=== PATIENT | female | born 1990 | race Caucasian/White ===

== ENCOUNTER 2020-02-07 12:33 | Inpatient (IN) | payer BC, OTHER ==
[~2020-02-07] VITALS: Ht 165.1 cm; Wt 77.5 kg
[2020-02-08] MEDS ORDERED: OXYTOCIN 30U/ 0.9% NaCL 500ML 500 ML IV ONE (18:01)
[2020-02-08] MEDS: D5%-LACTATED RINGERS 1,000 ML IV SCH (18:01)
[2020-02-08] MEDS ORDERED: MISOPROSTOL 200 MCG TABLET ONE (18:06)
[2020-02-08] MEDS ORDERED: LIDOCAINE 1%, 20ML ONE (18:06)
[2020-02-08] MEDS ORDERED: OXYTOCIN 30U/ 0.9% NaCL 500ML 500 ML ONE (18:06)
[2020-02-08] MEDS ORDERED: OXYTOCIN 30U/ 0.9% NaCL 500ML 500 ML IV PRN (18:20)
[2020-02-08] MEDS ORDERED: SODIUM CITRATE/CITRIC ACID 30 ML UDC PO PRN (18:30)
[2020-02-08] MEDS ORDERED: TERBUTALINE 1 MG/ML, 1ML IVPush PRN (18:30)
[2020-02-08] MEDS ORDERED: FENTANYL PF 100 MCG/2ML IV PRN (18:30)
[2020-02-08] MEDS ORDERED: TERBUTALINE 1 MG/ML, 1ML SQ PRN (18:30)
[2020-02-08] MEDS ORDERED: SODIUM CHLORIDE FLUSH 10ML SYR IVF PRN (18:30)
[2020-02-08] MEDS ORDERED: FENTANYL PF 100 MCG/2ML IVPush PRN (18:30)
[2020-02-08] MEDS ORDERED: METOCLOPRAMIDE 5 MG/ML, 2ML IVPush PRN (18:30)
[2020-02-08 18:38] LABS: BASOPHILS % (AUTO) 1 % (0-1); EOSINOPHILS # (AUTO) 0.02 x10^3/uL (0-0.4); EOSINOPHILS % (AUTO) 0 % (1-7); LYMPHOCYTES # (AUTO) 1.83 x10^3/uL (1-3.4); LYMPHOCYTES % (AUTO) 26 % (22-44); MD NO; MEAN CORPUSCULAR HEMOGLOBIN 33.7 pg (27.0-34.8); MEAN CORPUSCULAR HGB CONC 34.5 g/dL (32.4-35.8); MEAN CORPUSCULAR VOLUME 97.9 fL (80-100); MEAN PLATELET VOLUME 8.6 fL (7.4-10.4); MONOCYTES # (AUTO) 0.37 x10^3/uL (0.2-0.8); MONOCYTES % (AUTO) 5 % (2-9); NEUTROPHILS # (AUTO) 4.71 x10^3/uL (1.8-6.8); NEUTROPHILS % (AUTO) 67 % (42-75); PLATELET COUNT 304 x10^3/uL (130-400); RED BLOOD COUNT 3.96 x10^6/uL (3.82-5.3); RED CELL DISTRIBUTION WIDTH 12.6 % (9.6-15.2)
[2020-02-08] MEDS ORDERED: MISOPROSTOL 25 MCG TABLET ONE ×2 (18:41→22:46)
[2020-02-08] MEDS: MISOPROSTOL 25 MCG TABLET VG PRN ×2 (18:48→23:00)
[2020-02-08 18:57] VITALS: BP 107/68
[2020-02-09] MEDS ORDERED: FENTANYL PF 100 MCG/2ML ONE ×3 (00:56→18:41)
[2020-02-09] MEDS: D5%-LACTATED RINGERS 1,000 ML IV SCH ×3 (02:01→18:01)
[2020-02-09] MEDS ORDERED: FENTANYL/BUPIV./NS/PF 250 ML EPIDCONT ONE (02:07)
[2020-02-09] MEDS ORDERED: BUPIVACAINE 0.25% ONE ×2 (02:16→02:25)
[2020-02-09] MEDS ORDERED: ONDANSETRON 2MG/ML, 2ML ONE ×4 (03:47→18:41)
[2020-02-09] MEDS: ONDANSETRON 2MG/ML, 2ML IVPush PRN ×3 (03:51→17:44)
[2020-02-09] MEDS: LACTATED RINGERS 1,000 ML IV SCH ×6 (06:00→20:21)
[2020-02-09] MEDS ORDERED: NEWBORN KIT ONE (08:04)
[2020-02-09] MEDS ORDERED: SODIUM CITRATE/CITRIC ACID 30 ML UDC ONE (18:12)
[2020-02-09] MEDS ORDERED: METOCLOPRAMIDE 5 MG/ML, 2ML ONE (18:12)
[2020-02-09] MEDS ORDERED: OXYcodone/APAP 5/325MG TABLET PO PRN ×2 (18:30→23:30)
[2020-02-09] MEDS ORDERED: SODIUM CITRATE/CITRIC ACID 30 ML UDC PO ONE (18:30)
[2020-02-09] MEDS: KETOROLAC 30 MG/1 ML IV SCH (18:30)
[2020-02-09] MEDS ORDERED: ONDANSETRON 2MG/ML, 2ML IV PRN (18:30)
[2020-02-09] MEDS ORDERED: MISOPROSTOL 200 MCG TABLET PR PRN (18:30)
[2020-02-09] MEDS ORDERED: OXYcodone/APAP 10/325MG TABLET PO PRN (18:30)
[2020-02-09] MEDS ORDERED: EPHEDRINE 50 MG/ML, 1ML ONE (18:41)
[2020-02-09] MEDS ORDERED: SUCCINYLCHOLINE 20 MG/ML, 10ML ONE (18:41)
[2020-02-09] MEDS ORDERED: KETOROLAC 30 MG/1 ML ONE (18:41)
[2020-02-09] MEDS ORDERED: OXYTOCIN 10 UNITS/ML, 1ML ONE (18:41)
[2020-02-09] MEDS ORDERED: PHENYLEPHRINE 10 MG/ML ONE (18:41)
[2020-02-09] MEDS ORDERED: CEFAZOLIN 1,000 MG ONE (18:41)
[2020-02-09] MEDS ORDERED: PROPOFOL 10 MG/ML, 20ML ONE (18:41)
[2020-02-09] MEDS ORDERED: DEXAMETHASONE 4 MG/ML, 1ML ONE (18:41)
[2020-02-09] MEDS ORDERED: METOCLOPRAMIDE 5 MG/ML, 2ML IV ONE (19:00)
[2020-02-09] MEDS ORDERED: METOPROLOL 1 MG/ML, 5ML IV PRN (19:00)
[2020-02-09] MEDS ORDERED: AZITHROMYCIN 500 MG in SODIUM CHLORIDE 0.9% 250 ML IV ONE (19:00)
[2020-02-09] MEDS ORDERED: EPHEDRINE 50 MG/ML, 1ML IVPush PRN ×2 (19:00→23:30)
[2020-02-09] MEDS ORDERED: ONDANSETRON 2MG/ML, 2ML IVPush PRN ×2 (19:00→23:30)
[2020-02-09] MEDS ORDERED: ALBUTEROL SULFATE 2.5 MG/3 ML NPPB PRN (19:00)
[2020-02-09] MEDS ORDERED: OXYcodone 5 MG/5 ML ORAL.SOL UDC PO PRN (19:00)
[2020-02-09] MEDS ORDERED: FENTANYL PF 100 MCG/2ML IV PRN (19:00)
[2020-02-09] MEDS ORDERED: hydrALAzine 20 MG/ML, 1ML IV PRN (19:00)
[2020-02-09] MEDS ORDERED: MEPERIDINE/PF 25MG/0.5ML IVPush PRN (19:00)
[2020-02-09] MEDS ORDERED: MIDAZOLAM 1 MG/ML, 2ML IV PRN (19:00)
[2020-02-09] MEDS ORDERED: HYDROmorphone 2 MG/ML, 1ML IVPush PRN (19:00)
[2020-02-09] MEDS ORDERED: HYDROcodone/APAP 7.5-325MG/15ML UDC PO PRN (19:00)
[2020-02-09] MEDS ORDERED: PROMETHAZINE 25 MG/ML, 1ML IV PRN (19:00)
[2020-02-09] MEDS ORDERED: ONDANSETRON 2MG/ML, 2ML IVPush ONE (19:00)
[2020-02-09] MEDS ORDERED: LABETALOL 5MG/ML, 20ML IV PRN (19:00)
[2020-02-09] MEDS ORDERED: LACTATED RINGERS 1,000 ML IVBOLUS ONE (19:00)
[2020-02-09] MEDS ORDERED: morphine SULFATE/PF 0.5 MG/ML, 10ML ONE (19:23)
[2020-02-09] MEDS: OXYTOCIN 30U/ 0.9% NaCL 500ML 500 ML IV SCH (20:22)
[2020-02-09] MEDS ORDERED: OXYcodone 5 MG/5 ML ORAL.SOL UDC ONE (20:35)
[2020-02-09] MEDS: DOCUSATE 100 MG CAPSULE PO SCH (21:00)
[2020-02-09 22:00] VITALS: BP 112/68
[2020-02-09] MEDS ORDERED: KETOROLAC 30 MG/1 ML IVPush PRN (23:30)
[2020-02-09] MEDS ORDERED: DIPHENHYDRAMINE 50 MG/ML, 1ML IVPush PRN (23:30)
[2020-02-09] MEDS ORDERED: NALOXONE 0.4 MG/ML, 1ML IVPush PRN ×2 (23:30)
[2020-02-09] MEDS ORDERED: HYDROmorphone/PF 10 MG/ML, 1ML IVPush PRN (23:30)
[2020-02-09] MEDS ORDERED: DIPHENHYDRAMINE 50 MG/ML, 1ML ONE (23:32)
[2020-02-10] MEDS: KETOROLAC 30 MG/1 ML IV SCH ×3 (00:57→12:58)
[2020-02-10] MEDS: LACTATED RINGERS 1,000 ML IV SCH ×5 (02:23→18:23)
[2020-02-10 02:45] VITALS: BP 113/70
[2020-02-10] MEDS: OXYTOCIN 30U/ 0.9% NaCL 500ML 500 ML IV SCH ×2 (04:23→14:23)
[2020-02-10] MEDS ORDERED: DIPHENHYDRAMINE 50 MG/ML, 1ML IVPush PRN ×2 (05:30)
[2020-02-10 06:09] LABS: MEAN CORPUSCULAR HEMOGLOBIN 33.6 pg (27.0-34.8); MEAN CORPUSCULAR HGB CONC 33.9 g/dL (32.4-35.8); MEAN CORPUSCULAR VOLUME 99.1 fL (80-100); MEAN PLATELET VOLUME 8.6 fL (7.4-10.4); PLATELET COUNT 265 x10^3/uL (130-400); RED BLOOD COUNT 3.18 x10^6/uL (3.82-5.3); RED CELL DISTRIBUTION WIDTH 12.8 % (9.6-15.2)
[2020-02-10 06:50] LABS: BASOPHILS % (AUTO) 0 % (0-1); EOSINOPHILS % (AUTO) 0 % (1-7); LYMPHOCYTES % (AUTO) 6 % (22-44); MD SCAN; MONOCYTES # (AUTO) 0.67 x10^3/uL (0.2-0.8); MONOCYTES % (AUTO) 4 % (2-9); NEUTROPHILS # (AUTO) 14.32 x10^3/uL (1.8-6.8); NEUTROPHILS % (AUTO) 90 % (42-75)
[2020-02-10 07:40] VITALS: BP 106/69
[2020-02-10] MEDS: DOCUSATE 100 MG CAPSULE PO SCH ×2 (08:50→21:00)
[2020-02-10] MEDS: PRENATAL VIT/IRON/FA 1 EACH TABLET PO SCH (08:50)
[2020-02-10 12:20] VITALS: BP 120/79
[2020-02-10] MEDS: SIMETHICONE 80 MG CHEW TAB PO PRN (13:00)
[2020-02-10 16:45] VITALS: BP 111/74
[2020-02-10 19:25] VITALS: BP 108/71
[2020-02-11] MEDS: OXYTOCIN 30U/ 0.9% NaCL 500ML 500 ML IV SCH ×3 (00:23→19:36)
[2020-02-11] MEDS: LACTATED RINGERS 1,000 ML IV SCH ×8 (00:23→19:36)
[2020-02-11 07:00] VITALS: BP 129/87
[2020-02-11] MEDS: DOCUSATE 100 MG CAPSULE PO SCH ×2 (08:01→21:00)
[2020-02-11] MEDS: IBUPROFEN 800 MG TABLET PO PRN ×2 (08:01→17:25)
[2020-02-11] MEDS: PRENATAL VIT/IRON/FA 1 EACH TABLET PO SCH (08:01)
[2020-02-11 19:57] VITALS: BP 113/74
[2020-02-12] MEDS: DOCUSATE 100 MG CAPSULE PO SCH (07:49)
[2020-02-12] MEDS: SIMETHICONE 80 MG CHEW TAB PO PRN (07:49)
[2020-02-12] MEDS: IBUPROFEN 800 MG TABLET PO PRN (07:50)
[2020-02-12] MEDS: PRENATAL VIT/IRON/FA 1 EACH TABLET PO SCH (07:50)
[2020-02-12 08:19] VITALS: BP 124/70
[2020-02-12] MEDS ORDERED: OXYC-302 PO (10:49)
[2020-02-12] MEDS ORDERED: IBUP-1223 PO (10:51)
[2020-02-12] MEDS ORDERED: DOCU-131 PO (10:52)
== END 2020-02-12 11:51 | disposition home or self-care (01) | DRG 786 ==
LOC: LDIP 02-08 18:00 → 2NW 02-09 21:35
PROVIDERS: ADMIT Obstetrics & Gynecology; ATTEND Obstetrics & Gynecology
PROC: 10D00Z1 Extraction of Products of Conception, Low, Open Approach (ICD-10-PCS; principal; 2020-02-09)
DX: O36.63X0 Maternal care for excessive fetal growth, third trimester, not applicable or unspecified (principal); O99.42 Diseases of the circulatory system complicating childbirth; O48.0 Post-term pregnancy; Z37.0 Single live birth; Z3A.40 40 weeks gestation of pregnancy; I07.1 Rheumatic tricuspid insufficiency; O43.193 Other malformation of placenta, third trimester; O33.9 Maternal care for disproportion, unspecified; O32.9XX0 Maternal care for malpresentation of fetus, unspecified, not applicable or unspecified; O77.0 Labor and delivery complicated by meconium in amniotic fluid; O61.9 Failed induction of labor, unspecified; O76 Abnormality in fetal heart rate and rhythm complicating labor and delivery; Z20.828 Contact with and (suspected) exposure to other viral communicable diseases
CPT/HCPCS: 36415; 85025; 86592; 86850; 86900; G0378; J0456; J0690; J1100; J1885; J2274; J2405; J2704; J3010; J3490; J0330; J1200; J2370; J2590; J7050; J7120; U0001-CS